=== PATIENT | male | born 2000 | race Caucasian/White ===

== ENCOUNTER 2025-03-17 13:55 | Emergency (ER) | payer OTHER ==
[~2025-03-17] VITALS: Ht 177.8 cm; Wt 79.4 kg
[~2025-03-17 13:55] MED LIST: FLUT12AE7
[2025-03-17 15:25] LABS: BASOPHILS % (AUTO) 0.5 % (0.0-2.0); EOSINOPHILS # (AUTO) 0.1 K/uL (0.0-0.7); EOSINOPHILS % (AUTO) 1.2 % (0.0-6.0); HEMATOCRIT 46 % (39-51); HEMOGLOBIN 15.8 g/dL (13.5-17.5); LYMPHOCYTES # (AUTO) 1.7 K/uL (0.8-4.8); LYMPHOCYTES % (AUTO) 23.1 % (20.0-44.0); MEAN CORPUSCULAR HEMOGLOBIN 29 PG (26.0-33.0); MEAN CORPUSCULAR HGB CONC 34 g/dl (31.0-36.0); MEAN CORPUSCULAR VOLUME 85 fL (80-96); MONOCYTES # (AUTO) 0.5 K/uL (0.1-1.30); MONOCYTES % (AUTO) 6.8 % (2.0-12.0); NEUTROPHILS # (AUTO) 5.1 K/uL (1.8-8.9); NEUTROPHILS % (AUTO) 68.4 % (43.0-81.0); PLATELET COUNT (AUTO) 265 K/uL (150-450); RED BLOOD CELL COUNT(AUTO) 5.46 MIL/uL (4.5-6.0); RED CELL DISTRIBUTION WIDTH 13.6 % (11.5-15.0); WHITE BLOOD COUNT (AUTO) 7.4 K/uL (4.3-11.0)
[2025-03-17] MEDS ORDERED: ONDANSETRON HCL/PF 4 MG/2 ML VIAL ONE (15:25)
[2025-03-17] MEDS ORDERED: PANTOPRAZOLE 40 MG VIAL ONE (15:25)
[2025-03-17] MEDS ORDERED: FAMOTIDINE/PF INJ 40 MG in IV D5W 50 ML IV ONE (15:30)
[2025-03-17 15:33] LABS: CALCIUM, SERUM 9.4 mg/dL (8.5-10.1); POTASSIUM 4.3 mmol/L (3.5-5.1)
[2025-03-17] MEDS: IV NS 0.9% 500 ML BAG IV ONE (15:44)
[2025-03-17] MEDS: ONDANSETRON HCL/PF 4 MG/2 ML VIAL IVP ONE (15:46)
[2025-03-17] MEDS ORDERED: FAMOTIDINE/PF INJ 20 MG/2 ML VIAL IV ONE (15:47)
[2025-03-17] MEDS: PANTOPRAZOLE 40 MG VIAL IV ONE (15:49)
[2025-03-17] MEDS: FAMOTIDINE/PF INJ 20 MG/2 ML VIAL IV ONE (15:49)
[2025-03-17] MEDS ORDERED: PANT40TA49 PO (16:32)
[2025-03-17] MEDS ORDERED: ONDA4TAB5 PO (16:32)
[2025-03-17] MEDS ORDERED: FAMO-131 PO (16:32)
[2025-03-17 17:04] VITALS: BP 104/92; TEMP 98; O2SAT 96
== END 2025-03-17 17:05 | disposition home or self-care (01) ==
LOC: ER 13:55
DX: R11.2 Nausea with vomiting, unspecified (principal); J45.909 Unspecified asthma, uncomplicated; Z79.51 Long term (current) use of inhaled steroids; Z79.899 Other long term (current) drug therapy
CPT/HCPCS: 99285; 96374; 96375; 71045; 96361; 85025; 80048; 36415; J1308; J2405; J7040; J2470; J7060